=== PATIENT | female | born 1945 | race Caucasian/White ===

== ENCOUNTER 2017-07-05 17:08 | Emergency (ER) | payer MEDICARE, OTHER ==
--- NOTE | 2017-07-05 18:05 | EDM.PDOC ---
ED HPI GENERAL MEDICAL PROBLEM - General Stated Complaint: LEFT LEG PAIN Time Seen by Provider: 07/05/17 17:42 Source of Information: Reports: Patient History Limitations: Reports: No Limitations - History of Present Illness INITIAL COMMENTS - FREE TEXT/NARRATIVE: Patient presents with pain in lower left leg for last 6 weeks, since her back surgery. The pain has been especially bad for the last week. Yesterday she tried to get in to her PCP but can't until next . She has been taking Trazodone and Tylenol. No injury or trauma. The pain is in the area of an old injury. When she was [age] years old a grinding wheel tipped over and broke her leg. She had surgery on it at that time but it has been problematic for all her life. No she wonders if the recent back surgery is waking up nerve endings in the scar tissue of her old injury. She was told after the back surgery that there was no nerve damage in her back. She thinks she has tried Gabapentin some time ago and it affected her memory and was told not to use it again but she isn't sure if that is the right name. Pt denies any kidney problems or disease. - Related Data Allergies Allergy/AdvReac Type Severity Reaction Status Date / Time atorvastatin [From Lipitor] Allergy Body Aches Verified 07/05/17 18:23 Home Meds: Home Meds Citalopram [Celexa] 20 mg PO DAILY 07/05/17 [History] ClonazePAM [KlonoPIN] 0.5 mg PO BEDTIME PRN 07/05/17 [History] Levothyroxine Sodium [Synthroid] 112 mcg PO ACBREAKFAST 07/05/17 [History] Pramipexole [Mirapex] 1 mg PO BEDTIME PRN 07/05/17 [History] Review of Systems - Review of Systems Review Of Systems: See Below Constitutional: Denies: Chills, Diaphoresis, Fever, Weakness Eyes: Denies: Vision Change Ears: Denies: Dizziness Nose: Reports: No Symptoms Mouth/Throat: Denies: Pain Respiratory: Denies: Shortness of Breath, Cough Cardiovascular: Denies: Chest Pain, Edema, Syncope GI/Abdominal: Denies: Abdominal Pain, Diarrhea, Nausea, Vomiting Genitourinary: Denies: Dysuria Musculoskeletal: Reports: Leg Pain (left). Denies: Neck Pain, Shoulder Pain, Arm Pain, Back Pain Skin: Denies: Cyanosis, Jaundice, Mottled, Pallor, Diaphoresis Neurological: Denies: Confusion, Dizziness, Headache, Seizure, Syncope Psychiatric: Denies: Confusion ED EXAM, GENERAL - Physical Exam Exam: See Below Exam Limited By: No Limitations General Appearance: Alert, WD/WN, No Apparent Distress Eye Exam: Bilateral Eye: EOMI, Normal Inspection, PERRL Ears: Normal External Exam, Hearing Grossly Normal Nose: Normal Inspection, No Blood Throat/Mouth: Normal Lips, Normal Voice, No Airway Compromise Head: Atraumatic, Normocephalic Neck: Full Range of Motion Respiratory/Chest: No Respiratory Distress, Lungs Clear, Normal Breath Sounds Cardiovascular: Regular Rate, Rhythm, No Murmur Extremities: Normal Range of Motion, No Pedal Edema, Normal Capillary Refill, Other (lower left anteromedial tibia region is mildly tender to palpation over a large old jagged scar. No swelling, redness, induration or abscess. Calf is supple and nontender. Ankle is nontender with full ROM. Distal CMS is intact. Knee is painfree. Pain is localized to a small area of distal medial tibial region.). No: Gina's Sign, Increased Warmth, Mottled, Pallor, Redness Neurological: Alert, Oriented, Normal Cognition, No Motor/Sensory Deficits Psychiatric: Normal Affect, Normal Mood, Anxious Skin Exam: Warm, Dry, Intact, Normal Color, No Rash Course - Re-Assessments/Exams Free Text/Narrative Re-Assessment/Exam: 07/05/17 19:37 Pain is down to 5/10 after Toradol. Xrays show an exostosis between tibia and fibula that has either a crack or a pseudoarthrosis in it. I visited with the radiologist who feels it is most likely a pseudoarthrosis. Discussed findings and treatment plan with patient and her daughter. Pt discharged in stable condition. Departure - Departure Time of Disposition: 19:26 Disposition: Home, Self-Care 01 Condition: Good Clinical Impression: Pseudarthrosis at site of fracture of lower leg - Discharge Information Referrals: Nohelia Butcher PA-C [Primary Care Provider] - Additional Instructions: 1. Take Ibuprofen 400 mg every 8 hours as needed for pain. Don't use the Ibuprofen for 12 hours after leaving the ER. 2. Take the Hydrocodone as directed as needed for pain if not controlled by Ibuprofen. 3. Follow up with your PCP as planned on . 4. If this doesn't improve in a week or two an orthopedic evaluation may be necessary.
[2017-07-05 18:14] VITALS: BP 133/94
[2017-07-05] MEDS ORDERED: Ketorolac 30 MG/ML SDV IM ONE (18:18)
[2017-07-05] MEDS ORDERED: Acetaminophen/HYDROcodone 325-5 MG Tab PO PRN (19:33)
== END 2017-07-05 19:45 | disposition home or self-care (01) ==
LOC: KA.ED 17:08
DX: M96.0 Pseudarthrosis after fusion or arthrodesis (principal); Z88.8 Allergy status to other drugs, medicaments and biological substances; Z79.899 Other long term (current) drug therapy
CPT/HCPCS: 73590; 96372; 99283; A9270; J1885

== ENCOUNTER 2017-07-19 13:14 | Emergency (ER) | payer MEDICARE, OTHER ==
[2017-07-19 13:29] VITALS: BP 148/88
[2017-07-19] MEDS ORDERED: Diazepam 5 MG Tab ONE (13:43)
[2017-07-19] MEDS ORDERED: Diazepam 5 MG Tab PO SCH (14:00)
--- NOTE | 2017-07-19 14:07 | EDM.PDOC ---
ED HPI GENERAL MEDICAL PROBLEM - General Chief Complaint: Neuro Symptoms/Deficits Stated Complaint: RESTLESS LEG?? Time Seen by Provider: 07/19/17 14:02 Source of Information: Reports: Patient History Limitations: Reports: No Limitations - History of Present Illness INITIAL COMMENTS - FREE TEXT/NARRATIVE: PT STATES SHE HAS HAD INTERMITTENT BILAT LOWETR LEG PAIN. UNDERWENT LUMBAR SURGERY 2 MONTHS AGO AND HAS HAD RADICULAR SYMPTOMS SINCE. HAS HYDROCODONE BUT NOT WORKING. DENIES FALL OR TRAUMA, SADDLE ANESTHESIA, BOWEL OR URINARY INCONT, ABD PAIN, DYSURIA, CP, OR SOB. Duration: Chronic Location: Reports: Lower Extremity, Left, Lower Extremity, Right Improves with: Reports: None, Movement Worsens with: Reports: Immobilization Associated Symptoms: Reports: No Other Symptoms Bilateral Lower Leg Pain Score (Numeric/FACES): 5 - Related Data Allergies Allergy/AdvReac Type Severity Reaction Status Date / Time atorvastatin [From Lipitor] Allergy Body Aches Verified 07/19/17 13:29 gabapentin Allergy Disorientat Verified 07/19/17 13:35 ion Home Meds: Home Meds Citalopram [Celexa] 20 mg PO DAILY 07/05/17 [History] ClonazePAM [KlonoPIN] 0.5 mg PO BEDTIME PRN 07/05/17 [History] Levothyroxine Sodium [Synthroid] 112 mcg PO ACBREAKFAST 07/05/17 [History] Pramipexole [Mirapex] 1 mg PO BEDTIME 07/05/17 [History] Past Medical History HEENT History: Reports: Cataract, Impaired Vision Cardiovascular History: Reports: High Cholesterol 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: Musculoskeletal History: Reports: Back Pain, Chronic, Other (See Below) Other Musculoskeletal History: chronic left leg pain Neurological History: Reports: None Psychiatric History: Reports: Anxiety Endocrine/Metabolic History: Reports: Hypothyroidism, Obesity/BMI 30+ - Infectious Disease History Infectious Disease History: Reports: Chicken Pox, Measles, Mumps - Past Surgical History HEENT Surgical History: Reports: Cataract Surgery, Tonsillectomy Cardiovascular Surgical History: Reports: None Endocrine Surgical History: Reports: None Neurological Surgical History: Reports: Spinal Fusion, Other (See Below) Other Neurological Surgeries/Procedures: Fusion May 16, 2017 Musculoskeletal Surgical History: Reports: Other (See Below) Other Musculoskeletal Surgeries/Procedures:: leg surgery at 1yr old, back fusion Social & Family History - Family History Family Medical History: Noncontributory - Tobacco Use Smoking Status *Q: Former Smoker Used Tobacco, but Quit: Yes Month Tobacco Last Used: 1989 Second Hand Smoke Exposure: No - Caffeine Use Caffeine Use: Reports: Coffee, Soda - Recreational Drug Use Recreational Drug Use: No ED ROS GENERAL - Review of Systems Review Of Systems: ROS reveals no pertinent complaints other than HPI. Constitutional: Reports: No Symptoms HEENT: Reports: No Symptoms Respiratory: Reports: No Symptoms Cardiovascular: Reports: No Symptoms Endocrine: Reports: No Symptoms GI/Abdominal: Reports: No Symptoms : Reports: No Symptoms Musculoskeletal: Reports: Leg Pain Skin: Reports: No Symptoms Neurological: Reports: No Symptoms Psychiatric: Reports: No Symptoms Hematologic/Lymphatic: Reports: No Symptoms Immunologic: Reports: No Symptoms ED EXAM,LOWER BACK PAIN/INJURY - Physical Exam Exam: See Below Exam Limited By: No Limitations General Appearance: Alert, WD/WN, No Apparent Distress Throat/Mouth: Normal Inspection, Normal Oropharynx, No Airway Compromise Head: Atraumatic, Normocephalic Neck: Normal Inspection Respiratory/Chest: No Respiratory Distress GI/Abdominal: Normal Bowel Sounds, Soft, Non-Tender Back Exam: Normal Inspection. No: CVA Tenderness (L), CVA Tenderness (R), Vertebral Tenderness Extremities: Normal Inspection, No Pedal Edema, Leg Pain (LATERAL TIB/FIB BILAT) Neurological: Alert, Normal Mood/Affect, Normal Dorsiflexion, Normal Plantar Flexion, No Motor/Sensory Deficits Psychiatric: Normal Affect, Normal Mood Skin Exam: Warm, Dry, Intact, Normal Color, No Rash Lymphatic: No Adenopathy Course - Vital Signs Last Recorded V/S: Last Vital Signs Temp 97.6 F 07/19/17 13:24 Pulse 72 07/19/17 13:24 Resp 18 07/19/17 13:24 BP 148/88 H 07/19/17 13:24 Pulse Ox 95 07/19/17 13:24 - Orders/Labs/Meds Orders: Active Orders 24 hr Category Date Time Status Diazepam [Valium] Med 07/19/17 14:00 Active 5 mg PO ONETIME Medication Orders Diazepam (Valium.) 5 mg PO ONETIME FRACNESCA Last Admin: 07/19/17 13:48 Dose: 5 mg Meds: Medications Generic Name Dose Route Start Last Admin Trade Name Freq PRN Reason Stop Dose Admin Diazepam 5 mg 07/19/17 14:00 07/19/17 13:48 Valium. PO 5 mg ONETIME FRANCESCA Administration Discontinued Medications Generic Name Dose Route Start Last Admin Trade Name Camelia PRN Reason Stop Dose Admin Diazepam Confirm 07/19/17 13:43 Valium. Administered 07/19/17 13:44 Dose 5 mg .ROUTE .STK-MED ONE - Re-Assessments/Exams Free Text/Narrative Re-Assessment/Exam: 07/19/17 14:06 PT AFEBRILE, NONTOXIC APPEARING, VSS. DISCOMFORT RELIEVED WITH VALIUM. WILL SEND HOME WITH VALIUM AND F/U WITH PCP ON FRIDAY Departure - Departure Time of Disposition: 14:07 Disposition: Home, Self-Care 01 Condition: Good Clinical Impression: Radiculopathy due to lumbar intervertebral disc disorder - Discharge Information Instructions: Lumbosacral Radiculopathy, Sciatica, [id number] Referrals: Nohelia Butcher PA-C [Primary Care Provider] - Additional Instructions: FOLLOW UP WITH YOUR PCP IN NEXT 2-3 DAYS. RETURN TO ER SOONER IF SYMPTOMS CONTINUE - My Orders Last 24 Hours: My Active Orders 07/19/17 14:00 Diazepam [Valium] 5 mg PO ONETIME - Assessment/Plan Last 24 Hours: My Active Orders 07/19/17 14:00 Diazepam [Valium] 5 mg PO ONETIME Assessment:: LOWER EXTREMITY RADICULAR PAIN Plan: F/U WITH PCP
[2017-07-19] MEDS ORDERED: Diazepam 5 MG Tab PO ONE (14:09)
== END 2017-07-19 14:26 | disposition home or self-care (01) ==
LOC: KA.ED 13:14
DX: M51.16 Intervertebral disc disorders with radiculopathy, lumbar region (principal); E78.00 Pure hypercholesterolemia, unspecified; F41.9 Anxiety disorder, unspecified; E03.9 Hypothyroidism, unspecified; E66.9 Obesity, unspecified; Z90.89 Acquired absence of other organs; Z87.891 Personal history of nicotine dependence; Z88.8 Allergy status to other drugs, medicaments and biological substances; Z68.32 Body mass index [BMI] 32.0-32.9, adult
CPT/HCPCS: 99283; A9270

== ENCOUNTER 2020-07-28 09:59 | Emergency (ER) | payer MEDICARE, OTHER ==
--- NOTE | 2020-07-28 10:43 | EDM.PDOC ---
ED HPI GENERAL MEDICAL PROBLEM - General Stated Complaint: L SIDED ABD PX Time Seen by Provider: 07/28/20 10:10 Source of Information: Reports: Patient History Limitations: Reports: No Limitations - History of Present Illness INITIAL COMMENTS - FREE TEXT/NARRATIVE: Patient presents with pain in left abdomen that started 6 days ago and has been constant since then with some worsening overall. She has never had this before. She saw her PCP, Lissette Butcher, yesterday and had urine/blood lab and CXR done. Today Lissette told her to come to ER as she doesn't know what is causing this pain and thinks she may need a CT. Patient is 6 weeks S/P back surgery but this seems unrelated to that she says. She has been recovering well with that. She has a history of pleurisy but this feels different. Left Abdominal Pain Score (Numeric/FACES): 10 - Related Data Allergies Allergy/AdvReac Type Severity Reaction Status Date / Time atorvastatin [From Lipitor] Allergy Body Aches Verified 07/28/20 11:10 gabapentin Allergy Disorientat Verified 07/28/20 11:10 ion pregabalin [From Lyrica] Allergy Dizziness Verified 07/28/20 11:10 Home Meds: Home Meds Citalopram [Celexa] 20 mg PO DAILY 07/05/17 [History] ClonazePAM [KlonoPIN] 0.5 mg PO BEDTIME PRN 07/05/17 [History] Levothyroxine Sodium [Synthroid] 112 mcg PO ACBREAKFAST 07/05/17 [History] Pramipexole [Mirapex] 1 mg PO BEDTIME 07/05/17 [History] Albuterol/Ipratropium [DuoNeb 3.0-0.5 MG/3 ML] 3 ml INH QID PRN 07/28/20 [History] Cyclobenzaprine [Flexeril] 5 mg PO DAILY PRN 07/28/20 [History] Ezetimibe [Zetia] 10 mg PO DAILY 07/28/20 [History] Fenofibrate Nanocrystallized [Tricor] 145 mg PO DAILY 07/28/20 [History] Hydrocodone/Acetaminophen [Hydrocodone-Acetamin 5-325 mg] 1 each PO Q6HR PRN 07/28/20 [History] Multivitamin with Minerals [Multiple Vitamin] 1 each PO DAILY 07/28/20 [History] Nystatin [Nystatin Ointment] 15 gm TOP BID 07/28/20 [History] Ondansetron [Zofran ODT] 4 mg PO Q4HR PRN 07/28/20 [History] Phentermine HCl [Adipex-P] 37.5 mg PO DAILY 07/28/20 [History] Promethazine [Phenergan] 25 mg RECTAL Q6HR PRN 07/28/20 [History] metFORMIN [Glucophage XR] 500 mg PO DAILY 07/28/20 [History] traMADol [Ultram] 50 mg PO BID 07/28/20 [History] Past Medical History HEENT History: Reports: Cataract, Impaired Vision Cardiovascular History: Reports: High Cholesterol Gastrointestinal History: Reports: None 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: Musculoskeletal History: Reports: Back Pain, Chronic, Other (See Below) Other Musculoskeletal History: chronic left leg pain Neurological History: Reports: None Psychiatric History: Reports: Anxiety Endocrine/Metabolic History: Reports: Hypothyroidism, Obesity/BMI 30+ - Infectious Disease History Infectious Disease History: Reports: Chicken Pox, Measles, Mumps - Past Surgical History HEENT Surgical History: Reports: Cataract Surgery, Tonsillectomy Cardiovascular Surgical History: Reports: None Endocrine Surgical History: Reports: None Neurological Surgical History: Reports: Spinal Fusion, Other (See Below) Other Neurological Surgeries/Procedures: Fusion May 16, 2017 Musculoskeletal Surgical History: Reports: Other (See Below) Other Musculoskeletal Surgeries/Procedures:: leg surgery at 1yr old, back fusion Social & Family History - Family History Family Medical History: Noncontributory - Caffeine Use Caffeine Use: Reports: Coffee, Soda ED ROS GENERAL - Review of Systems Review Of Systems: See Below Constitutional: Denies: Fever, Chills, Weakness HEENT: Denies: Ear Pain, Throat Pain, Vision Change Respiratory: Reports: Cough (mild chronic, intermittent; not worse than usual). Denies: Shortness of Breath Cardiovascular: Denies: Chest Pain, Lightheadedness, Syncope GI/Abdominal: Reports: Abdominal Pain. Denies: Constipation, Diarrhea, Nausea, Vomiting : Reports: Flank Pain (left). Denies: Dysuria Musculoskeletal: Denies: Neck Pain, Shoulder Pain, Arm Pain, Back Pain (surgical pain is improving nicely) Skin: Denies: Cyanosis, Jaundice, Mottled, Pallor, Diaphoresis Neurological: Denies: Confusion, Dizziness, Headache, Seizure, Syncope, Trouble Speaking, Difficulty Walking Psychiatric: Denies: Agitation, Anxiety, Confusion ED EXAM, GI/ABD - Physical Exam Exam: See Below Exam Limited By: No Limitations General Appearance: Alert, WD/WN, Other (apparent pain/discomfort) Eyes: Bilateral: Normal Appearance, EOMI Ears: Normal External Exam, Hearing Grossly Normal Nose: Normal Inspection, No Blood Throat/Mouth: Normal Inspection, Normal Lips, Normal Voice, No Airway Compromise Head: Atraumatic, Normocephalic Neck: Normal Inspection, Full Range of Motion Respiratory/Chest: No Respiratory Distress, Crackles (left lung base), Other (tender to palpation of left lateral inferior chest wall around to LUQ ). No: Rhonchi, Wheezing, Stridor Cardiovascular: Regular Rate, Rhythm, No Murmur GI/Abdominal Exam: Soft, Tender (LUQ only). No: Distended, Guarding, Rigid Back Exam: Normal Inspection, Full Range of Motion. No: CVA Tenderness (L), CVA Tenderness (R) Extremities: Normal Inspection, Normal Range of Motion Neurological: Alert, Oriented, Normal Cognition, No Motor/Sensory Deficits Psychiatric: Normal Affect, Normal Mood Skin Exam: Warm, Dry, Intact, Normal Color, No Rash Course - Vital Signs Last Recorded V/S: Last Vital Signs Temp 98.6 F 07/28/20 10:52 Pulse 68 07/28/20 12:26 Resp 20 07/28/20 12:26 BP 128/74 07/28/20 12:26 Pulse Ox 91 L 07/28/20 12:26 - Orders/Labs/Meds Orders: Active Orders 24 hr Category Date Time Status CBC WITH AUTO DIFF [HEME] Stat Lab 07/28/20 12:06 Ordered LACTIC ACID [CHEM] Stat Lab 07/28/20 12:06 Ordered UA W/MICROSCOPIC [URIN] Stat Lab 07/28/20 10:43 Ordered Sodium Chloride 0.9% [Normal Saline] 50 ml Med 07/28/20 11:00 Active IV ASDIRECTED Medication Orders Sodium Chloride (Normal Saline) 50 mls @ 200 mls/min IV ASDIRECTED FRANCESCA Meds: Medications Generic Name Dose Route Start Last Admin Trade Name Freq PRN Reason Stop Dose Admin Sodium Chloride 50 mls @ 200 mls/min 07/28/20 11:00 Normal Saline IV ASDIRECTED FRANCESCA Discontinued Medications Generic Name Dose Route Start Last Admin Trade Name Camelia PRN Reason Stop Dose Admin Hydrocodone Bitart/Acetaminophen 1 tab 07/28/20 11:39 07/28/20 11:45 [place] 325-10 Mg PO 07/28/20 11:40 1 tab ONETIME ONE Administration Iopamidol 100 ml 07/28/20 10:50 Isovue-370 (76%) IV 07/28/20 10:51 ONETIME ONE - Re-Assessments/Exams Free Text/Narrative Re-Assessment/Exam: 07/28/20 10:48 The UA is not completed yet from [facility] so we will do one here. CXR report shows evidence of left lung base atelectasis but otherwise clear. 07/28/20 12:35 CT abd/pelvis shows an acute to subacute mild to moderate T10 compression fracture with apparent screw displacement. Also approx. 7x6x5 cm gas and fluid collection within the decompression site in the L-spine, with concern for possibility of abscess. I called neurosurgery at [facility] and pushed images to PACS for them to review and get back to me. Patient denies any falls or trauma and has been following her post-surgical precautions carefully. She is wearing the brace they gave her. 07/28/20 16:57 I discussed case with [place] neurologist (while [employer] was down). He reviewed the CT images and thinks the surgical construct broke down; he advised transfer to their ER for MRI and neuro consult. I discussed findings and plan with patient who agreed. She is feeling better after the hydrocodone and was sent with NPO orders via [facility] with her , in stable condition. Departure - Departure Time of Disposition: 13:07 Disposition: DC/Tfer to Acute Hospital 02 Condition: Good Clinical Impression: Hardware failure Thoracic compression fracture Qualifiers: Encounter type: initial encounter Thoracic vertebra fracture level: T10 Qualified Code(s): S22.070A - Wedge compression fracture of T9-T10 vertebra, initial encounter for closed fracture Lumbar surgical wound fluid collection Qualifiers: Encounter type: initial encounter Qualified Code(s): T81.89XA - Other complications of procedures, not elsewhere classified, initial encounter - Discharge Information Referrals: Nohelia Butcher PA-C [Primary Care Provider] - Additional Instructions: Go directly to [facility] ER to see Dr. Voss. Don't eat or drink anything. Sepsis Event Note (ED) - Focused Exam Vital Signs: Vital Signs Temp Pulse Resp BP Pulse Ox 07/28/20 12:26 68 20 128/74 91 L 07/28/20 11:54 75 20 161/102 H 91 L 07/28/20 10:52 98.6 F 75 24 H 140/80 94 L - My Orders Last 24 Hours: My Active Orders 07/28/20 10:43 UA W/MICROSCOPIC [URIN] Stat 07/28/20 11:00 Sodium Chloride 0.9% [Normal Saline] 50 ml IV ASDIRECTED 07/28/20 12:06 CBC WITH AUTO DIFF [HEME] Stat LACTIC ACID [CHEM] Stat - Assessment/Plan Last 24 Hours: My Active Orders 07/28/20 10:43 UA W/MICROSCOPIC [URIN] Stat 07/28/20 11:00 Sodium Chloride 0.9% [Normal Saline] 50 ml IV ASDIRECTED 07/28/20 12:06 CBC WITH AUTO DIFF [HEME] Stat LACTIC ACID [CHEM] Stat
[2020-07-28] MEDS: Iopamidol 755 Mg/ML 100 ML Bottle IV ONE (10:58)
[2020-07-28] MEDS: Sodium Chloride 0.9% 50 ML IV SCH (10:58)
[2020-07-28] MEDS: Acetaminophen/HYDROcodone 325-10 MG Tab PO ONE (11:45)
--- NOTE | 2020-07-28 11:53 | CT ---
[id number] CT/CT Abdomen Pelvis W IV EXAM: ABDOMEN AND PELVIS CT WITH CONTRAST INDICATION: Left-sided abdominal pain. COMPARISON: None. DISCUSSION: Extensive surgical changes throughout the lumbar spine and in the lower thoracic spine. Posterior fusion extending from T10 through the sacrum bilaterally. There is an acute to subacute appearing T10 compression fracture. The transpedicular screws appear to extend through the superior endplate of the fractured vertebral body and contact the adjacent T9 inferior endplate. Discectomies with interbody grafts L2-L3 through L5-S1. Posterior decompression from L2-L3 through L5-S1. Within the decompression defect along the posterior aspect of the central canal there is a 67 x 61 x 45 mm gas and fluid collection. The gas within the collection could be from recent intervention versus abscess. Correlate with surgical timing and clinical signs and symptoms. Mild scarring or atelectasis in the lung bases. Focal filling defect in a posterior medial subsegmental right lower lobe bronchus (image 27 series 2). The heart is prominent in size. Fatty infiltration of the liver. In the left lateral segment of the liver there is a 26 mm cyst. In the right lobe of liver there is a 12 mm hypodensity that is indeterminate by its density. The gallbladder is surgically absent. The spleen, pancreas, adrenal glands, kidneys and small bowel are normal in appearance. There is diverticulosis of the colon without evidence of diverticulitis. The uterus contains scattered small calcified leiomyomata. Pelvic structures are otherwise unremarkable. Mild diastases recti. Small fat-containing umbilical hernia. Right hip arthroplasty. IMPRESSION: 1. Extensive surgical changes within the thoracic spine. There is an acute to subacute appearing mild to moderate T10 compression fracture with the transpedicular screws and fixation hardware appearing to extend through the fractured superior endplate. 2. 67 x 61 x 45 mm gas and fluid collection within the posterior decompression site in the lumbar spine. Presence of gas within the collection raise the possibility of an underlying abscess, correlate with clinical signs and symptoms. Tim Day MD 07/28/20 0848 Thank you for allowing us to participate in the care of your patient.
[2020-07-28 15:47] VITALS: BP 128/74; PULSE 68
== END 2020-07-28 13:37 ==
LOC: KA.ED 09:59
DX: T81.89XA Other complications of procedures, not elsewhere classified, initial encounter (principal); S22.070A Wedge compression fracture of T9-T10 vertebra, initial encounter for closed fracture; Z88.8 Allergy status to other drugs, medicaments and biological substances; Z79.899 Other long term (current) drug therapy; E78.00 Pure hypercholesterolemia, unspecified; E03.9 Hypothyroidism, unspecified; E66.9 Obesity, unspecified; Z68.33 Body mass index [BMI] 33.0-33.9, adult
CPT/HCPCS: 36415; 74177; 81001; 83605; 85025; 99284; 99285-25; A9270-GY; J7050; Q9967

== ENCOUNTER 2020-09-08 10:35 | Emergency (ER) | payer MEDICARE, OTHER ==
--- NOTE | 2020-09-08 11:34 | CR ---
[id number] RAD/RAD Chest PA or AP 1V EXAM: FRONTAL CHEST INDICATION: SOB COMPARISON: None. DISCUSSION: There is mild cardiomegaly with borderline central vascular congestion. Scattered mild airspace opacities, favor edema over infection. Chronic bilateral rib fractures. Extensive posterior fusion hardware in the lower thoracic and upper lumbar spine. IMPRESSION: 1. Mild congestive heart failure. 2. Scattered airspace edema versus less likely infiltrates. Tim Day MD 09/08/20 1132 Thank you for allowing us to participate in the care of your patient.
--- NOTE | 2020-09-08 11:48 | EDM.PDOC ---
ED HPI GENERAL MEDICAL PROBLEM - General Chief Complaint: Respiratory Problem Stated Complaint: COUGH/SOB Time Seen by Provider: 09/08/20 11:38 Source of Information: Reports: Patient History Limitations: Reports: No Limitations - History of Present Illness INITIAL COMMENTS - FREE TEXT/NARRATIVE: Patient presents with dyspnea for a couple days, also vomiting "phlegm". No fever. - Related Data Allergies Allergy/AdvReac Type Severity Reaction Status Date / Time atorvastatin [From Lipitor] Allergy Body Aches Verified 09/08/20 11:36 gabapentin Allergy Disorientat Verified 09/08/20 11:36 ion pregabalin [From Lyrica] Allergy Dizziness Verified 09/08/20 11:36 Home Meds: Home Meds Citalopram [Celexa] 20 mg PO DAILY 07/05/17 [History] ClonazePAM [KlonoPIN] 0.5 mg PO BEDTIME PRN 07/05/17 [History] Levothyroxine Sodium [Synthroid] 112 mcg PO ACBREAKFAST 07/05/17 [History] Pramipexole [Mirapex] 1 mg PO BEDTIME 07/05/17 [History] Albuterol/Ipratropium [DuoNeb 3.0-0.5 MG/3 ML] 3 ml INH QID PRN 07/28/20 [History] Cyclobenzaprine [Flexeril] 5 mg PO DAILY PRN 07/28/20 [History] Ezetimibe [Zetia] 10 mg PO DAILY 07/28/20 [History] Fenofibrate Nanocrystallized [Tricor] 145 mg PO DAILY 07/28/20 [History] Hydrocodone/Acetaminophen [Hydrocodone-Acetamin 5-325 mg] 1 each PO Q6HR PRN 07/28/20 [History] Multivitamin with Minerals [Multiple Vitamin] 1 each PO DAILY 07/28/20 [History] Nystatin [Nystatin Ointment] 15 gm TOP BID 07/28/20 [History] Ondansetron [Zofran ODT] 4 mg PO Q4HR PRN 07/28/20 [History] Phentermine HCl [Adipex-P] 37.5 mg PO DAILY 07/28/20 [History] Promethazine [Phenergan] 25 mg RECTAL Q6HR PRN 07/28/20 [History] metFORMIN [Glucophage XR] 500 mg PO DAILY 07/28/20 [History] traMADol [Ultram] 50 mg PO BID 07/28/20 [History] Past Medical History HEENT History: Reports: Cataract, Impaired Vision Cardiovascular History: Reports: High Cholesterol Gastrointestinal History: Reports: None [place] History: Reports: Musculoskeletal History: Reports: Back Pain, Chronic, Other (See Below) Other Musculoskeletal History: chronic left leg pain Neurological History: Reports: None Psychiatric History: Reports: Anxiety Endocrine/Metabolic History: Reports: Hypothyroidism, Obesity/BMI 30+ - Infectious Disease History Infectious Disease History: Reports: Chicken Pox, Measles, Mumps - Past Surgical History HEENT Surgical History: Reports: Cataract Surgery, Tonsillectomy Cardiovascular Surgical History: Reports: None Endocrine Surgical History: Reports: None Neurological Surgical History: Reports: Spinal Fusion, Other (See Below) Other Neurological Surgeries/Procedures: Fusion May 16, 2017 Musculoskeletal Surgical History: Reports: Other (See Below) Other Musculoskeletal Surgeries/Procedures:: leg surgery at 1yr old, back fusion Social & Family History - Family History Family Medical History: Noncontributory - Caffeine Use Caffeine Use: Reports: Coffee, Soda ED ROS GENERAL - Review of Systems Review Of Systems: See Below Constitutional: Reports: Malaise. Denies: Fever HEENT: Denies: Throat Swelling, Vision Change Respiratory: Reports: Shortness of Breath, Cough, Sputum Cardiovascular: Denies: Chest Pain, Lightheadedness, Syncope GI/Abdominal: Reports: Nausea, Vomiting. Denies: Abdominal Pain : Denies: Dysuria, Flank Pain Musculoskeletal: Reports: No Symptoms Skin: Denies: Cyanosis, Jaundice, Mottled, Pallor Neurological: Denies: Confusion, Dizziness, Seizure, Syncope, Trouble Speaking, Difficulty Walking Psychiatric: Denies: Agitation, Anxiety, Confusion ED EXAM, GENERAL - Physical Exam Exam: See Below Exam Limited By: No Limitations General Appearance: Alert, WD/WN, No Apparent Distress Eye Exam: Bilateral Eye: EOMI, Normal Inspection, PERRL Ears: Normal External Exam, Hearing Grossly Normal Nose: Normal Inspection, No Blood Throat/Mouth: Normal Inspection, Normal Voice, No Airway Compromise Head: Atraumatic, Normocephalic Neck: Normal Inspection, Full Range of Motion Respiratory/Chest: No Accessory Muscle Use, Decreased Breath Sounds (somewhat shallow), Crackles (slight in bases), Wheezing (slight, occasional). No: Rhonchi, Stridor Cardiovascular: Normal Peripheral Pulses, Regular Rate, Rhythm, No Edema, No Gallop, No JVD, No Murmur Peripheral Pulses: 2+: Carotid (L), Carotid (R), Radial (L), Radial (R), Posterior Tibial (L), Posterior Tibial (R) GI/Abdominal: Normal Bowel Sounds, Soft, Non-Tender (palpation exacerbates nausea), No Organomegaly Back Exam: Normal Inspection, Full Range of Motion Extremities: Normal Inspection, Normal Range of Motion Neurological: Alert, Oriented, Normal Cognition, No Motor/Sensory Deficits Psychiatric: Normal Affect, Normal Mood Skin Exam: Warm, Dry, Intact, Normal Color, No Rash Course - Vital Signs Last Recorded V/S: Last Vital Signs Temp 98.9 F 09/08/20 12:49 Pulse 83 09/08/20 12:49 Resp 22 H 09/08/20 12:49 BP 112/78 09/08/20 12:49 Pulse Ox 95 09/08/20 12:49 - Orders/Labs/Meds Orders: Active Orders 24 hr Category Date Time Status EKG Documentation Completion [RC] ASDIRECTED Care 09/08/20 11:00 Active EKG 12 Lead [EK] Stat Ther 09/08/20 10:59 Ordered Labs: Laboratory Tests 09/08/20 09/08/20 09/08/20 Range/Units 11:20 11:20 11:20 WBC 5.48 (5.00-10.00) 10^3/uL RBC 4.23 (3.80-5.50) 10^6/uL Hgb 11.5 L (12.0-16.0) g/dL Hct 38.2 (37.0-47.0) % MCV 90.3 D (82.0-92.0) fL MCH 27.2 (27.0-31.0) pg MCHC 30.1 L (32.0-36.0) g/dL RDW 15.5 H (11.5-14.5) % Plt Count 207 (150-400) 10^3/uL MPV 8.2 (7.4-10.4) fL Immature Gran % (Auto) 0.2 (0.0-5.0) % Neut % (Auto) 82.6 H (50.0-70.0) % Lymph % (Auto) 10.8 L (20.0-40.0) % Yell % (Auto) 6.0 (2.0-8.0) % Eos % (Auto) 0.0 L (1.0-3.0) % Baso % (Auto) 0.4 (0.0-1.0) % Neut # (Auto) 4.53 (2.50-7.00) 10^3/uL Lymph # (Auto) 0.59 L (1.00-4.00) 10^3/uL Yell # (Auto) 0.33 (0.10-0.80) 10^3/uL Eos # (Auto) 0.00 L (0.10-0.30) 10^3/uL Baso # (Auto) 0.02 (0.00-0.10) 10^3/uL Immature Gran # (Auto) 0.01 (0.00-0.50) 10^3/uL D-Dimer, Quantitative 2440 H (<400) ng/mL Sodium 128 L (136-145) mmol/L Potassium 4.2 (3.3-5.3) mmol/L Chloride 97 L (98-115) mmol/L Carbon Dioxide 25.7 (21.0-32.0) mmol/L Anion Gap 9.5 (5-15) mmol/L BUN 9 (6-25) mg/dL Creatinine 0.62 (0.51-1.17) mg/dL Est Cr Clr Drug Dosing 58.25 mL/min Estimated GFR (MDRD) > 60 mL/min Glucose 122 H (75 - 99) mg/dL Calcium 8.9 (8.7-10.3) mg/dL Total Bilirubin 0.5 (0.2-1.0) mg/dL AST 38 H (15-37) U/L ALT 35 (12-78) U/L Alkaline Phosphatase 117 H (46-116) IU/L B-Natriuretic Peptide (0-100) pg/mL Total Protein 8.5 H (6.4-8.2) g/dL Albumin 3.69 (3.00-4.80) g/dL SARS CoV-2 RNA Rapid SONI (NEGATIVE) 09/08/20 09/08/20 Range/Units 11:20 12:04 WBC (5.00-10.00) 10^3/uL RBC (3.80-5.50) 10^6/uL Hgb (12.0-16.0) g/dL Hct (37.0-47.0) % MCV (82.0-92.0) fL MCH (27.0-31.0) pg MCHC (32.0-36.0) g/dL RDW (11.5-14.5) % Plt Count (150-400) 10^3/uL MPV (7.4-10.4) fL Immature Gran % (Auto) (0.0-5.0) % Neut % (Auto) (50.0-70.0) % Lymph % (Auto) (20.0-40.0) % Yell % (Auto) (2.0-8.0) % Eos % (Auto) (1.0-3.0) % Baso % (Auto) (0.0-1.0) % Neut # (Auto) (2.50-7.00) 10^3/uL Lymph # (Auto) (1.00-4.00) 10^3/uL Yell # (Auto) (0.10-0.80) 10^3/uL Eos # (Auto) (0.10-0.30) 10^3/uL Baso # (Auto) (0.00-0.10) 10^3/uL Immature Gran # (Auto) (0.00-0.50) 10^3/uL D-Dimer, Quantitative (<400) ng/mL Sodium (136-145) mmol/L Potassium (3.3-5.3) mmol/L Chloride (98-115) mmol/L Carbon Dioxide (21.0-32.0) mmol/L Anion Gap (5-15) mmol/L BUN (6-25) mg/dL Creatinine (0.51-1.17) mg/dL Est Cr Clr Drug Dosing mL/min Estimated GFR (MDRD) mL/min Glucose (75 - 99) mg/dL Calcium (8.7-10.3) mg/dL Total Bilirubin (0.2-1.0) mg/dL AST (15-37) U/L ALT (12-78) U/L Alkaline Phosphatase (46-116) IU/L B-Natriuretic Peptide 73 (0-100) pg/mL Total Protein (6.4-8.2) g/dL Albumin (3.00-4.80) g/dL SARS CoV-2 RNA Rapid SONI Positive H (NEGATIVE) Meds: Medications Discontinued Medications Generic Name Dose Route Start Last Admin Trade Name Camelia PRN Reason Stop Dose Admin Dexamethasone 8 mg 09/08/20 13:26 Decadron IVPUSH 09/08/20 13:27 ONETIME ONE Ondansetron HCl 4 mg 09/08/20 11:49 09/08/20 12:01 Zofran IVPUSH 09/08/20 11:50 4 mg ONETIME ONE Administration - Re-Assessments/Exams Free Text/Narrative Re-Assessment/Exam: 09/08/20 12:02 CXR shows mild cardiomegaly with edema favored over infiltrates. Will check BNP. 09/08/20 13:03 Discussed findings and treatment options with patient. She is okay with either [facility] or [facility] but would prefer [facility] first choice. Discussed case with DR. Montoya, hospitalist at [facility] who is getting very limited on available beds there for Covid admissions. He strongly encouraged me see if we could possibly keep this patient locally and treat with Remdesivir and steroids. 09/08/20 13:33 I discussed case with our DON who advised me to try to get patient accepted somewhere that has ventilator availability in case it's needed. Dr. Hooper, ER at [facility] accepted for transfer and requested Decadron 8 mg IVP prior to departure. Departure - Departure Time of Disposition: 13:30 Disposition: DC/Tfer to Acute Hospital 02 Condition: Good Clinical Impression: COVID-19, Hypoxemia requiring supplemental oxygen - Discharge Information Referrals: Nohelia Butcher PA-C [Primary Care Provider] - Forms: ED Department Discharge Sepsis Event Note (ED) - Evaluation Sepsis Screening Result: No Definite Risk - Focused Exam Vital Signs: Vital Signs Temp Pulse Resp BP Pulse Ox 09/08/20 12:49 98.9 F 83 22 H 112/78 95 09/08/20 11:45 83 129/89 97 09/08/20 11:30 76 137/80 97 09/08/20 11:16 84 119/72 97 09/08/20 11:00 80 130/78 96 09/08/20 10:45 82 129/86 96 09/08/20 10:40 81 129/82 93 L 09/08/20 10:36 95 09/08/20 10:35 97.8 F 85 22 H 146/83 H 86 L - My Orders Last 24 Hours: My Active Orders 09/08/20 10:59 EKG 12 Lead [EK] Stat 09/08/20 11:00 EKG Documentation Completion [RC] ASDIRECTED - Assessment/Plan Last 24 Hours: My Active Orders 09/08/20 10:59 EKG 12 Lead [EK] Stat 09/08/20 11:00 EKG Documentation Completion [RC] ASDIRECTED
[2020-09-08] MEDS ORDERED: Ondansetron 4 MG/2 ML SDV IVPUSH ONE (11:49)
[2020-09-08 12:04] LABS: ANION GAP 9.5 mmol/L (5-15); CHLORIDE,CL 97 mmol/L (98-115); SODIUM,NA 128 mmol/L (136-145)
[2020-09-08 12:50] VITALS: BP 112/78; PULSE 83
[2020-09-08] MEDS ORDERED: Dexamethasone 4 MG/ML SDV IVPUSH ONE (13:26)
== END 2020-09-08 13:47 ==
LOC: KA.ED 10:35
DX: U07.1 COVID-19 (principal); R09.02 Hypoxemia; E03.9 Hypothyroidism, unspecified; E66.9 Obesity, unspecified; E78.00 Pure hypercholesterolemia, unspecified; F41.9 Anxiety disorder, unspecified; Z88.8 Allergy status to other drugs, medicaments and biological substances; Z20.828 Contact with and (suspected) exposure to other viral communicable diseases; Z79.899 Other long term (current) drug therapy; Z68.32 Body mass index [BMI] 32.0-32.9, adult
CPT/HCPCS: 36415; 71045; 80053; 83880; 85025; 85379; 93005; 96374; 96375; 99285; J1100; J2405; U0002

== ENCOUNTER 2024-07-28 11:51 | Emergency (ER) | payer MEDICARE, OTHER ==
[2024-07-28 13:40] VITALS: BP 132/80; PULSE 64
== END 2024-07-28 13:20 | disposition home or self-care (01) ==
LOC: KA.ED 11:51
DX: S46.212A Strain of muscle, fascia and tendon of other parts of biceps, left arm, initial encounter (principal); E78.00 Pure hypercholesterolemia, unspecified; E03.9 Hypothyroidism, unspecified; E66.9 Obesity, unspecified; Z68.33 Body mass index [BMI] 33.0-33.9, adult; Z79.899 Other long term (current) drug therapy; Z79.84 Long term (current) use of oral hypoglycemic drugs; Z88.8 Allergy status to other drugs, medicaments and biological substances; Z88.9 Allergy status to unspecified drugs, medicaments and biological substances; X50.1XXA Overexertion from prolonged static or awkward postures, initial encounter
CPT/HCPCS: 73060-LT; 99283; 99284

== ENCOUNTER 2024-08-28 18:35 | Inpatient (IN) | payer MEDICARE ==
[2024-08-28] MEDS ORDERED: Naloxone 0.4 MG/ML SDV IVPUSH PRN ×2 (18:42→23:09)
[2024-08-28] MEDS: Ondansetron 4 MG/2 ML SDV IVPUSH ONE (18:47)
[2024-08-28] MEDS: HYDROmorphone 1 MG/ML Syringe IVPUSH ONE (18:49)
[2024-08-28] MEDS ORDERED: Sodium Chloride 0.9% 10 ML Syringe FLUSH PRN (18:49)
[2024-08-28 19:05] LABS: BASOPHILS ABSOLUTE AUTO 0.01 10^3/uL (0.00-0.10); BASOPHILS PERCENT AUTO 0.1 % (0.0-1.0); EOSINOPHILS ABSOLUTE AUTO 0.01 10^3/uL (0.10-0.30); EOSINOPHILS PERCENT AUTO 0.1 % (1.0-3.0); HEMOGLOBIN 14.7 g/dL (12.0-16.0); IMMATURE GRAN ABSOLUTE AUTO 0.04 10^3/uL (0.00-0.50); IMMATURE GRAN PERCENT AUTO 0.5 % (0.0-5.0); LYMPHOCYTES ABSOLUTE AUTO 1.08 10^3/uL (1.00-4.00); LYMPHOCYTES PERCENT AUTO 12.3 % (20.0-40.0); MEAN CORPUSCULAR HEMOGLOBIN 31.7 pg (27.0-31.0); MEAN CORPUSCULAR HGB CONC 32.7 g/dL (32.0-36.0); MEAN CORPUSCULAR VOLUME 97.2 fL (82.0-92.0); MONOCYTES ABSOLUTE AUTO 0.59 10^3/uL (0.10-0.80); MONOCYTES PERCENT AUTO 6.7 % (2.0-8.0); NEUTROPHILS ABSOLUTE AUTO 7.05 10^3/uL (2.50-7.00); NEUTROPHILS PERCENT AUTO 80.3 % (50.0-70.0); PLATELET COUNT,PLT 171 10^3/uL (150-400); RED BLOOD CELL COUNT 4.63 10^6/uL (3.80-5.50); RED CELL DISTRIBUTION WIDTH 13.5 % (11.5-14.5); WHITE BLOOD CELL COUNT,WBC 8.78 10^3/uL (5.00-10.00)
[2024-08-28 19:21] LABS: ALANINE AMINOTRANSFERASE,ALT 54 U/L (14-63); ALBUMIN 3.76 g/dL (3.40-5.00); ALKALINE PHOSPHATASE 74 U/L (46-116); ANION GAP 12.6 mmol/L (5-15); ASPARTATE AMNIOTRANSFERASE,AST 44 U/L (15-37); BILIRUBIN TOTAL 0.5 mg/dL (0.2-1.0); BLOOD UREA NITROGEN,BUN 17 mg/dL (7-18); CALCIUM 9.4 mg/dL (8.7-10.3); CARBON DIOXIDE,CO2 30.9 mmol/L (21.0-32.0); CHLORIDE,CL 100 mmol/L (98-107); CREATININE 0.85 mg/dL (0.51-1.17); GLUCOSE RANDOM 129 mg/dL (70-140); POTASSIUM,K 4.5 mmol/L (3.5-5.1); PROTEIN TOTAL,TP 7.5 g/dL (6.4-8.2); SODIUM,NA 139 mmol/L (136-145)
[2024-08-28 19:23] LABS: ESTIMATED GFR 69 mL/min (>=60)
[2024-08-28] MEDS: Acetaminophen/HYDROcodone 325-5 MG Tab PO ONE (20:07)
[2024-08-28] MEDS ORDERED: Albuterol/Ipratropium 3.0-0.5 MG/3 ML Neb Soln NEB PRN (22:55)
[2024-08-28] MEDS ORDERED: HYDROmorphone 1 MG/ML Syringe IVPUSH PRN (23:09)
[2024-08-28] MEDS: Acetaminophen/HYDROcodone 325-5 MG Tab PO PRN (23:22)
[2024-08-29] MEDS: Levothyroxine 25 MCG Tab PO SCH (06:18)
[2024-08-29] MEDS: Levothyroxine 100 MCG Tab PO SCH (06:18)
[2024-08-29 07:23] LABS: BASOPHILS ABSOLUTE AUTO 0.02 10^3/uL (0.00-0.10); BASOPHILS PERCENT AUTO 0.3 % (0.0-1.0); EOSINOPHILS ABSOLUTE AUTO 0.02 10^3/uL (0.10-0.30); EOSINOPHILS PERCENT AUTO 0.3 % (1.0-3.0); HEMATOCRIT 38.8 % (37.0-47.0); HEMOGLOBIN 12.4 g/dL (12.0-16.0); IMMATURE GRAN ABSOLUTE AUTO 0.01 10^3/uL (0.00-0.50); IMMATURE GRAN PERCENT AUTO 0.2 % (0.0-5.0); LYMPHOCYTES ABSOLUTE AUTO 1.26 10^3/uL (1.00-4.00); LYMPHOCYTES PERCENT AUTO 21.5 % (20.0-40.0); MEAN CORPUSCULAR HEMOGLOBIN 31.9 pg (27.0-31.0); MEAN CORPUSCULAR VOLUME 99.7 fL (82.0-92.0); MEAN PLATELET VOLUME 8.8 fL (7.4-10.4); MONOCYTES PERCENT AUTO 10.2 % (2.0-8.0); NEUTROPHILS ABSOLUTE AUTO 3.95 10^3/uL (2.50-7.00); NEUTROPHILS PERCENT AUTO 67.5 % (50.0-70.0); PLATELET COUNT,PLT 170 10^3/uL (150-400); RED BLOOD CELL COUNT 3.89 10^6/uL (3.80-5.50); RED CELL DISTRIBUTION WIDTH 13.8 % (11.5-14.5); WHITE BLOOD CELL COUNT,WBC 5.86 10^3/uL (5.00-10.00)
[2024-08-29 07:40] LABS: ANION GAP 10.3 mmol/L (5-15); CARBON DIOXIDE,CO2 31.1 mmol/L (21.0-32.0); CREATININE 0.97 mg/dL (0.51-1.17); EST CRCL DRUG DOSING (CG) 33.23 mL/min; POTASSIUM,K 4.4 mmol/L (3.5-5.1)
[2024-08-29] MEDS: Lutein/Minerals/Vitamins A, C & E Tab PO SCH (09:20)
[2024-08-29] MEDS: Ezetimibe 10 MG Tab PO SCH (09:20)
[2024-08-29] MEDS: Calcium Citrate/Vitamin D3 315 MG-250 Unit Tab PO SCH (09:20)
[2024-08-29] MEDS: Polyethylene Glycol 3350 Powder 17 GM Packet PO PRN (09:20)
[2024-08-29] MEDS: Furosemide 40 MG/4 ML VIAL IVPUSH ONE (12:05)
[2024-08-29] MEDS: FENOFIBRATE 145 MG PO SCH (14:55)
[2024-08-29 18:09] LABS: APPEARANCE,URINE CLEAR (CLEAR); BILIRUBIN,URINE NEGATIVE (NEGATIVE); COLOR,URINE YELLOW (YELLOW); GLUCOSE,URINE NEGATIVE (NEGATIVE); KETONES,URINE NEGATIVE (NEGATIVE); LEUKOCYTE ESTERASE,URINE NEGATIVE (NEGATIVE); NITRITE,URINE NEGATIVE (NEGATIVE); OCCULT BLOOD,URINE SMALL (NEGATIVE); PH,URINE 5.5 (5.0-9.0); PROTEIN,URINE NEGATIVE (NEGATIVE); UROBILINOGEN,URINE 0.2 E.U./dL (0.2-1.0)
[2024-08-29 18:10] LABS: BACTERIA,URINE RARE /HPF (NONE TO FEW); EPITHELIAL CELLS,URINE RARE /LPF; WBC,URINE 0-5 /HPF (0-5)
[2024-08-29] MEDS: Ondansetron 4 MG/2 ML SDV IV PRN (19:06)
[2024-08-29] MEDS: Citalopram 20 MG Tab PO SCH (20:33)
[2024-08-29] MEDS: Pramipexole 0.5 MG Tab PO SCH (20:33)
[2024-08-29] MEDS: MIRABEGRON 25 MG PO SCH (20:34)
[2024-08-29] MEDS: AMITRIPTYLINE 10 MG PO SCH (20:34)
[2024-08-29] MEDS: Fluticasone NASAL Spray 16 GM Bottle NAS PRN (20:35)
[2024-08-30] MEDS: Potassium Chloride 20 MEQ Tab.ER PO ONE (09:18)
[2024-08-30] MEDS: Acetaminophen 325 MG Tab PO SCH (09:18)
[2024-08-30] MEDS: Furosemide 40 MG/4 ML VIAL IVPUSH ONE (09:18)
[2024-08-30] MEDS ORDERED: Morphine 2 MG/ML SYRINGE IVPUSH PRN ×2 (14:23→14:31)
[2024-08-30] MEDS: Sennosides/Docusate Sodium 50-8.6 MG Tab PO SCH (14:33)
[2024-08-30] MEDS: Bisacodyl 10 MG Supp RECTAL PRN (14:33)
[2024-08-31 07:19] LABS: ALBUMIN 3.08 g/dL (3.40-5.00); ANION GAP 4.7 mmol/L (5-15); CALCIUM 9.3 mg/dL (8.7-10.3); CARBON DIOXIDE,CO2 38.7 mmol/L (21.0-32.0); CREATININE 0.69 mg/dL (0.51-1.17); EST CRCL DRUG DOSING (CG) 46.71 mL/min; PHOSPHORUS 2.9 mg/dL (2.6-4.7); POTASSIUM,K 4.4 mmol/L (3.5-5.1)
[2024-08-31] MEDS: Furosemide 20 MG Tab PO SCH (12:10)
[2024-08-31] MEDS: Enoxaparin 40 MG/0.4 ML Syringe SUBCUT SCH (12:10)
[2024-09-01 07:47] LABS: ALBUMIN 3.02 g/dL (3.40-5.00); CALCIUM 9.7 mg/dL (8.7-10.3); CARBON DIOXIDE,CO2 37.1 mmol/L (21.0-32.0); CREATININE 0.68 mg/dL (0.51-1.17); EST CRCL DRUG DOSING (CG) 47.4 mL/min; PHOSPHORUS 3.3 mg/dL (2.6-4.7); POTASSIUM,K 4.1 mmol/L (3.5-5.1)
[2024-09-02 13:29] VITALS: BP 118/63; PULSE 73
== END 2024-09-02 14:00 | DRG 562 ==
LOC: KA.ED 18:35 → KA.MS 21:58 → OBSVTOIN 08-29 11:38
PROVIDERS: ADMIT Nurse Practitioner; ATTEND Internal Medicine
DX: S42.491A Other displaced fracture of lower end of right humerus, initial encounter for closed fracture (principal); E78.00 Pure hypercholesterolemia, unspecified; J96.01 Acute respiratory failure with hypoxia; H54.7 Unspecified visual loss; G89.29 Other chronic pain; M54.9 Dorsalgia, unspecified; E66.9 Obesity, unspecified; W19.XXXA Unspecified fall, initial encounter; E03.9 Hypothyroidism, unspecified; F41.9 Anxiety disorder, unspecified; Z88.8 Allergy status to other drugs, medicaments and biological substances; Z98.1 Arthrodesis status; Z68.37 Body mass index [BMI] 37.0-37.9, adult; Z98.49 Cataract extraction status, unspecified eye; Z90.89 Acquired absence of other organs; Z79.899 Other long term (current) drug therapy; Z79.890 Hormone replacement therapy; Z98.890 Other specified postprocedural states; W18.30XA Fall on same level, unspecified, initial encounter; Y92.009 Unspecified place in unspecified non-institutional (private) residence as the place of occurrence of the external cause
CPT/HCPCS: 36415; 71045; 73060-RT; 80048; 80053; 80069; 81001; 85025; 93005; 93010; 96374; 96375; 99284; 99285-25; A9270-GY; J1171; J1650; J1940; J2405; Q3014

== ENCOUNTER 2025-02-23 01:51 | Emergency (ER) | payer MEDICARE ==
[2025-02-23] MEDS: LORazepam 0.5 MG Tab PO ONE (02:49)
[2025-02-23 03:34] VITALS: PULSE 88
[2025-02-23 03:35] VITALS: BP 153/84
== END 2025-02-23 03:25 | disposition home or self-care (01) ==
LOC: KA.ED 01:51
DX: G47.00 Insomnia, unspecified (principal); R25.1 Tremor, unspecified; F41.9 Anxiety disorder, unspecified; E66.9 Obesity, unspecified; E03.9 Hypothyroidism, unspecified; Z88.8 Allergy status to other drugs, medicaments and biological substances; Z79.899 Other long term (current) drug therapy; Z79.51 Long term (current) use of inhaled steroids; Z79.890 Hormone replacement therapy; Z87.891 Personal history of nicotine dependence
CPT/HCPCS: 99283; A9270; 99284